=== PATIENT | female | born 1965 | race Caucasian/White ===

== ENCOUNTER 2022-01-18 08:12 | Day surgery (SDC) | payer BC ==
[2022-01-18] MEDS ORDERED: Propofol 200 MG/20 ML SDV IV ONE (08:13)
[2022-01-18] MEDS ORDERED: Lactated Ringers 1,000 ML IV SCH (08:15)
[2022-01-18] MEDS ORDERED: Sodium Chloride 0.9% 10 ML Syringe FLUSH PRN (08:15)
== END 2022-01-18 12:04 | disposition home or self-care (01) ==
LOC: FB.SDS 08:12
PROVIDERS: ATTEND Surgery
DX: K63.5 Polyp of colon (principal); K57.30 Diverticulosis of large intestine without perforation or abscess without bleeding; K64.9 Unspecified hemorrhoids; K21.9 Gastro-esophageal reflux disease without esophagitis; Z88.2 Allergy status to sulfonamides
CPT/HCPCS: 00812-QZ; J2704; J7120